=== PATIENT | male | born 1970 | race Caucasian/White ===

== ENCOUNTER 2017-09-24 20:22 | Emergency (ER) | payer MEDICAID, SELFPAY ==
[~2017-09-24] VITALS: Ht 182.9 cm; Wt 90.9 kg
[2017-09-24 20:35] VITALS: BP 142/98
== END 2017-09-24 21:22 | disposition home or self-care (01) ==
LOC: EMS 20:23
DX: K04.7 Periapical abscess without sinus (principal); K02.9 Dental caries, unspecified; F16.90 Hallucinogen use, unspecified, uncomplicated; F17.210 Nicotine dependence, cigarettes, uncomplicated
CPT/HCPCS: 99283

== ENCOUNTER 2019-05-10 05:06 | Emergency (ER) | payer SELFPAY ==
[~2019-05-10] VITALS: Ht 182.9 cm; Wt 90.9 kg
[2019-05-10] MEDS ORDERED: CloNIDine HCL 0.2 MG TABLET PO ONE (06:45)
[2019-05-10] MEDS ORDERED: KETOROLAC TROMETHAMINE 30 MG/ML VIAL IVP ONE (06:45)
[2019-05-10] MEDS ORDERED: LISINOPRIL 10 MG TABLET PO ONE (06:45)
[2019-05-10 06:55] LABS: BASOPHILS % (AUTO) 0.7 % (0.0-2.0); EOSINOPHILS % (AUTO) 1.7 % (1.0-6.0); HEMATOCRIT 39.8 % (41-53); HEMOGLOBIN 13.3 g/dL (13.5-17.5); LYMPHOCYTES # (AUTO) 1.6 K/uL (1.0-4.8); LYMPHOCYTES % (AUTO) 23.7 % (22.0-44.0); MEAN CORPUSCULAR HEMOGLOBIN 30.9 pg (26.0-34.0); MEAN CORPUSCULAR HGB CONC 33.4 G/dL (31.0-37.0); MEAN CORPUSCULAR VOLUME 92 fL (80-100); MONOCYTES # (AUTO) 0.7 K/uL (0.1-1.0); MONOCYTES % (AUTO) 10.3 % (2.0-9.0); NEUTROPHILS # (AUTO) 4.2 K/uL (1.8-7.7); NEUTROPHILS % (AUTO) 63.6 % (40.0-70.0); PLATELET COUNT (AUTO) 289 K/uL (150-450); RED BLOOD CELL COUNT(AUTO) 4.31 MIL/uL (4.50-5.90); RED CELL DISTRIBUTION WIDTH 13.3 % (11.5-14.5)
[2019-05-10 07:05] LABS: ANION GAP 7 mmol/L (8-16); CALCIUM, TOTAL 9.2 mg/dL (8.8-10.5); CARBON DIOXIDE 28 mmol/L (22-29); CHLORIDE 101 mmol/L (98-107); CREATININE 1.25 mg/dL (0.60-1.30); GLOMERULAR FILTR. RATE CALC > 60 mL/min (>60); GLUCOSE,RANDOM 102 mg/dL (70-110); POTASSIUM 4.2 mmol/L (3.5-5.1); SODIUM SERUM 136 mmol/L (136-145); UREA NITROGEN, BLOOD 21 mg/dL (7-18)
[2019-05-10 07:11] LABS: ALANINE AMINOTRANSFERASE 51 U/L (12-78); ALBUMIN 3.4 g/dL (3.4-5.0); ALKALINE PHOSPHATASE 99 U/L (46-116); ASPARTATE AMINOTRANSFERASE 44 U/L (15-37); BILIRUBIN,TOTAL 0.4 mg/dL (0.1-1.0)
[2019-05-10 08:43] LABS: APPEARANCE,URINE CLEAR (CLEAR); BILIRUBIN,URINE NEGATIVE (NEGATIVE); GLUCOSE, URINE (UA) NEGATIVE (NEGATIVE); KETONES,URINE NEGATIVE (NEGATIVE); LEUKOCYTE ESTERASE ,URINE NEGATIVE (NEGATIVE); NITRATE,URINE NEGATIVE (NEGATIVE); OCCULT BLOOD,URINE NEGATIVE (NEGATIVE); PROTEIN,URINE POS 1+ (NEGATIVE)
[2019-05-10 08:56] LABS: RBC,URINE None Seen /HPF (0-2)
[2019-05-10 08:57] LABS: BACTERIA,URINE None Seen /HPF (None Seen); SQUAMOUS EPITHELIAL CELL,UR Rare /LPF (None Seen); WBC,URINE 0-2 /HPF (0-5)
[2019-05-10 09:45] VITALS: BP 135/99
== END 2019-05-10 09:52 | disposition home or self-care (01) ==
LOC: EMS 05:11
DX: M62.838 Other muscle spasm (principal); M54.16 Radiculopathy, lumbar region; I10 Essential (primary) hypertension; F17.210 Nicotine dependence, cigarettes, uncomplicated; F19.90 Other psychoactive substance use, unspecified, uncomplicated; G43.909 Migraine, unspecified, not intractable, without status migrainosus
CPT/HCPCS: 36415; 72100; 80053; 81001; 85025; 93005; 96374; 99284; 99406; J1885

== ENCOUNTER 2019-07-23 13:27 | Emergency (ER) | payer SELFPAY ==
[~2019-07-23] VITALS: Ht 182.9 cm; Wt 90.0 kg
[2019-07-23] MEDS ORDERED: SULFAMETHOX/TRIMETH DS 800-160 MG/TABLET PO ONE (16:00)
[2019-07-23] MEDS ORDERED: CEPHALEXIN MONOHYDRATE 500 MG CAPSULE PO ONE (16:00)
[2019-07-23 16:11] VITALS: BP 128/78
== END 2019-07-23 16:39 | disposition home or self-care (01) ==
LOC: EMS 13:29
DX: L03.114 Cellulitis of left upper limb (principal); R03.0 Elevated blood-pressure reading, without diagnosis of hypertension; F15.90 Other stimulant use, unspecified, uncomplicated; F17.210 Nicotine dependence, cigarettes, uncomplicated

== ENCOUNTER 2021-08-20 19:46 | Emergency (ER) | payer MEDICAID, OTHER ==
[~2021-08-20] VITALS: Ht 182.9 cm; Wt 90.7 kg
[2021-08-20] MEDS ORDERED: ONDANSETRON HCL 4 MG TABLET PO ONE (21:15)
[2021-08-20] MEDS ORDERED: IBUPROFEN 600 MG TABLET PO ONE (21:15)
[2021-08-20 22:09] VITALS: BP 154/99
== END 2021-08-20 23:28 | disposition home or self-care (01) ==
LOC: EMS 19:52
DX: R51.9 Headache, unspecified (principal); F15.90 Other stimulant use, unspecified, uncomplicated; F17.210 Nicotine dependence, cigarettes, uncomplicated
CPT/HCPCS: 70450; 99284; Q0162

== ENCOUNTER 2022-10-22 03:32 | Emergency (ER) | payer OTHER ==
[~2022-10-22] VITALS: Ht 182.9 cm; Wt 90.9 kg
[2022-10-22 04:16] VITALS: BP 143/109
[2022-10-22 04:17] LABS: BASOPHILS % (AUTO) 0.8 % (0.0-2.0); EOSINOPHILS % (AUTO) 2.2 % (1.0-6.0); HEMATOCRIT 44.8 % (41-53); HEMOGLOBIN 15.1 g/dL (13.5-17.5); LYMPHOCYTES # (AUTO) 2.2 K/uL (1.0-4.8); LYMPHOCYTES % (AUTO) 32.8 % (22.0-44.0); MEAN CORPUSCULAR HEMOGLOBIN 30.9 pg (26.0-34.0); MEAN CORPUSCULAR HGB CONC 33.8 G/dL (31.0-37.0); MEAN CORPUSCULAR VOLUME 92 fL (80-100); MONOCYTES # (AUTO) 0.6 K/uL (0.1-1.0); MONOCYTES % (AUTO) 9.5 % (2.0-9.0); NEUTROPHILS # (AUTO) 3.7 K/uL (1.8-7.7); NEUTROPHILS % (AUTO) 54.7 % (40.0-70.0); PLATELET COUNT (AUTO) 313 K/uL (150-450); RED BLOOD CELL COUNT(AUTO) 4.89 MIL/uL (4.50-5.90); RED CELL DISTRIBUTION WIDTH 13.4 % (11.5-14.5)
[2022-10-22] MEDS ORDERED: MAG HYDROX/AL HYDROX/SIMETH 30 ML SUSP UDCUP PO ONE (04:30)
[2022-10-22] MEDS ORDERED: FAMOTIDINE 20 MG TABLET PO ONE (04:30)
[2022-10-22] MEDS ORDERED: ACETAMINOPHEN 500 MG TABLET PO ONE (04:30)
[2022-10-22 04:40] LABS: ANION GAP 3 mmol/L (8-16); CALCIUM, TOTAL 9.8 mg/dL (8.8-10.5); CARBON DIOXIDE 31 mmol/L (22-29); CHLORIDE 98 mmol/L (98-107); CREATININE 1.16 mg/dL (0.60-1.30); GLUCOSE,RANDOM 112 mg/dL (70-110); POTASSIUM 4.8 mmol/L (3.5-5.1); SODIUM SERUM 132 mmol/L (136-145); UREA NITROGEN, BLOOD 17 mg/dL (7-18)
[2022-10-22 04:42] LABS: GLOMERULAR FILTR. RATE CALC > 60 mL/min (>60)
[2022-10-22 04:51] LABS: ALANINE AMINOTRANSFERASE 81 U/L (12-78); ALBUMIN 3.6 g/dL (3.4-5.0); ALKALINE PHOSPHATASE 125 U/L (46-116); ASPARTATE AMINOTRANSFERASE 53 U/L (15-37); B-TYPE NATRIURETIC PEPTIDE 24 pg/mL (0-100); BILIRUBIN,TOTAL 0.4 mg/dL (0.1-1.0); CREATINE KINASE, TOTAL ONLY 201 U/L (39-308); LIPASE 138 U/L (73-393); TOTAL PROTEIN, SERUM 7.9 g/dL (6.4-8.2)
== END 2022-10-22 06:15 | disposition home or self-care (01) ==
LOC: EMS 03:33
DX: R07.9 Chest pain, unspecified (principal); F15.10 Other stimulant abuse, uncomplicated; F17.210 Nicotine dependence, cigarettes, uncomplicated; I10 Essential (primary) hypertension
CPT/HCPCS: 71045; 80053; 82550; 83690; 83880; 84484; 85025; 93005; 99285; 36415-L1; 36415-TC

== ENCOUNTER 2024-04-24 07:17 | Emergency (ER) | payer OTHER ==
[~2024-04-24] VITALS: Ht 182.9 cm; Wt 97.7 kg
[2024-04-24 07:20] VITALS: BP 135/82; PULSE 104; RESP 18; TEMP 97.9
[2024-04-24] MEDS: LIDOCAINE 1% 10 ML VIAL SQ ONE (09:22)
[2024-04-24] MEDS ORDERED: SULF-261 PO (10:08)
[2024-04-24] MEDS ORDERED: CEPH-558 PO (10:08)
[2024-04-24] MEDS: SULFAMETHOX/TRIMETH DS 800-160 MG/TABLET PO ONE (10:11)
[2024-04-24] MEDS: CEPHALEXIN MONOHYDRATE 500 MG CAPSULE PO ONE (10:11)
== END 2024-04-24 10:16 | disposition home or self-care (01) ==
LOC: EMS 07:21
DX: M71.012 Abscess of bursa, left shoulder (principal); I10 Essential (primary) hypertension; F17.210 Nicotine dependence, cigarettes, uncomplicated; F15.90 Other stimulant use, unspecified, uncomplicated
CPT/HCPCS: 99283; 10060; J3490

== ENCOUNTER 2024-04-25 05:04 | Inpatient (IN) | payer OTHER ==
[~2024-04-25] VITALS: Ht 182.9 cm; Wt 97.7 kg
[~2024-04-25 05:04] MED LIST: CEPH-558 PO; SULF-261 PO
[2024-04-25 06:40] LABS: BASOPHILS % (AUTO) 0.7 % (0.0-2.0); EOSINOPHILS % (AUTO) 0.4 % (1.0-6.0); HEMATOCRIT 39.3 % (41-53); LYMPHOCYTES # (AUTO) 1.9 K/uL (1.0-4.8); LYMPHOCYTES % (AUTO) 16.5 % (22.0-44.0); MEAN CORPUSCULAR HEMOGLOBIN 30.5 pg (26.0-34.0); MEAN CORPUSCULAR HGB CONC 33.1 G/dL (31.0-37.0); MEAN CORPUSCULAR VOLUME 92 fL (80-100); MONOCYTES # (AUTO) 1.1 K/uL (0.1-1.0); MONOCYTES % (AUTO) 10.2 % (2.0-9.0); NEUTROPHILS # (AUTO) 8.1 K/uL (1.8-7.7); NEUTROPHILS % (AUTO) 72.2 % (40.0-70.0); PLATELET COUNT (AUTO) 273 K/uL (150-450); RED BLOOD CELL COUNT(AUTO) 4.26 MIL/uL (4.50-5.90); RED CELL DISTRIBUTION WIDTH 14.1 % (11.5-14.5); WHITE BLOOD COUNT (AUTO) 11.2 K/uL (4.5-11.0)
[2024-04-25 06:45] LABS: ANION GAP 9 mmol/L (8-16); CALCIUM, TOTAL 9.1 mg/dL (8.8-10.5); CARBON DIOXIDE 26 mmol/L (22-29); CHLORIDE 98 mmol/L (98-107); CREATININE 1.38 mg/dL (0.60-1.30); GLOMERULAR FILTR. RATE CALC 53 mL/min (>60); GLUCOSE,RANDOM 129 mg/dL (70-110); POTASSIUM 3.9 mmol/L (3.5-5.1); SODIUM SERUM 133 mmol/L (136-145); UREA NITROGEN, BLOOD 17 mg/dL (7-18)
[2024-04-25] MEDS: SODIUM CHLORIDE 0.9% 2,950 ML IV ONE (06:51)
[2024-04-25] MEDS: CEFTAROLINE 600 MG/D5W 250 ML IV ONE (06:51)
[2024-04-25] MEDS ORDERED: SODIUM CHLORIDE 0.9% 100 ML ONE (06:53)
[2024-04-25] MEDS ORDERED: IOHEXOL 350 MG/ML 100 ML VIAL ONE (06:53)
[2024-04-25 07:01] LABS: LACTIC ACID 1.9 mmol/L (0.4-2.0)
[2024-04-25] MEDS ORDERED: OxyCODONE HCL/ACETAMINOPHEN 5-325 MG TABLET PO PRN ×2 (08:45)
[2024-04-25] MEDS ORDERED: ZOLPIDEM TARTRATE 5 MG TABLET PO PRN (08:45)
[2024-04-25] MEDS: *CLINICAL-CEFTAROLINE DOSING CLINICAL ONE (08:45)
[2024-04-25] MEDS: SODIUM CHLORIDE 0.9% 1,000 ML IV ONE (09:15)
[2024-04-25] MEDS: FAMOTIDINE 20 MG TABLET PO SCH (09:15)
[2024-04-25] MEDS: DOCUSATE SODIUM 100 MG CAPSULE PO SCH (09:15)
[2024-04-25] MEDS: AmLODIPine BESYLATE 5 MG TABLET PO SCH (09:15)
[2024-04-25 10:46] VITALS: BP 130/99; PULSE 90; RESP 18; TEMP 98.2
[2024-04-25 12:00] VITALS: BP 130/99; PULSE 90; RESP 18; TEMP 98.2
[2024-04-25] MEDS: ACETAMINOPHEN 325 MG TABLET PO PRN (14:47)
[2024-04-25 16:16] VITALS: BP 137/82; PULSE 84; RESP 18; TEMP 97.7
[2024-04-25] MEDS: CEFTAROLINE 600 MG/D5W 250 ML IV SCH (18:30)
[2024-04-25 20:19] VITALS: BP 126/66; PULSE 81; RESP 18; TEMP 98.1
[2024-04-25] MEDS: ACETAMINOPHEN 500 MG TABLET PO ONE (23:14)
[2024-04-26 05:16] LABS: APPEARANCE,URINE CLEAR (CLEAR); BILIRUBIN,URINE NEGATIVE (NEGATIVE); COLOR,URINE LIGHT YELLOW (YELLOW); GLUCOSE, URINE (UA) NEGATIVE (NEGATIVE); KETONES,URINE NEGATIVE (NEGATIVE); LEUKOCYTE ESTERASE ,URINE NEGATIVE (NEGATIVE); NITRATE,URINE NEGATIVE (NEGATIVE); OCCULT BLOOD,URINE NEGATIVE (NEGATIVE); PROTEIN,URINE NEGATIVE (NEGATIVE); SPECIFIC GRAVITIY, URINE 1.007 (1.003-1.030); UROBILINOGEN,URINE <=1.0 mg/dL (<=1.0)
[2024-04-26 05:20] VITALS: BP 134/79; PULSE 84; RESP 18; TEMP 97.9
[2024-04-26] MEDS ORDERED: SODIUM CHLORIDE 0.9% 500 ML IV ONE (06:18)
[2024-04-26 08:45] VITALS: BP 139/78; PULSE 97; RESP 18; TEMP 98.2
[2024-04-26 19:25] VITALS: BP 125/66; PULSE 98; RESP 18; TEMP 98
[2024-04-27 04:58] VITALS: BP 133/77; PULSE 85; RESP 20; TEMP 98.2
[2024-04-27 08:13] VITALS: BP 138/91; PULSE 91; RESP 20; TEMP 98.8
[2024-04-27] MEDS ORDERED: SULF-261 PO (08:22)
[2024-04-27 08:29] LABS: BASOPHILS % (AUTO) 0.6 % (0.0-2.0); EOSINOPHILS % (AUTO) 1.4 % (1.0-6.0); HEMATOCRIT 41.6 % (41-53); HEMOGLOBIN 14.1 g/dL (13.5-17.5); LYMPHOCYTES # (AUTO) 1.7 K/uL (1.0-4.8); LYMPHOCYTES % (AUTO) 18.2 % (22.0-44.0); MEAN CORPUSCULAR HGB CONC 33.9 G/dL (31.0-37.0); MEAN CORPUSCULAR VOLUME 91 fL (80-100); MONOCYTES # (AUTO) 0.7 K/uL (0.1-1.0); MONOCYTES % (AUTO) 7.3 % (2.0-9.0); NEUTROPHILS # (AUTO) 6.7 K/uL (1.8-7.7); NEUTROPHILS % (AUTO) 72.5 % (40.0-70.0); PLATELET COUNT (AUTO) 358 K/uL (150-450); RED BLOOD CELL COUNT(AUTO) 4.55 MIL/uL (4.50-5.90); RED CELL DISTRIBUTION WIDTH 13.6 % (11.5-14.5); WHITE BLOOD COUNT (AUTO) 9.2 K/uL (4.5-11.0)
[2024-04-27 08:31] LABS: ANION GAP 8 mmol/L (8-16); CALCIUM, TOTAL 9.8 mg/dL (8.8-10.5); CARBON DIOXIDE 28 mmol/L (22-29); CHLORIDE 100 mmol/L (98-107); CREATININE 1.14 mg/dL (0.60-1.30); GLOMERULAR FILTR. RATE CALC > 60 mL/min (>60); GLUCOSE,RANDOM 113 mg/dL (70-110); POTASSIUM 4.6 mmol/L (3.5-5.1); SODIUM SERUM 136 mmol/L (136-145); UREA NITROGEN, BLOOD 10 mg/dL (7-18)
[2024-04-27] MEDS ORDERED: ETHYL ALCOHOL 62% ANTISEPTIC NASAL SANITIZER 0.6 ML AMPUL NASAL ONE (09:30)
[2024-04-27] MEDS ORDERED: RINGERS SOLUTION,LACTATED 1,000 ML IV ONE ×2 (09:32→12:00)
== END 2024-04-27 12:40 | disposition left against medical advice (07) | DRG 383 ==
LOC: EMS 05:05 → 6S 10:07
PROVIDERS: ADMIT Internal Medicine; ATTEND Internal Medicine
DX: L03.113 Cellulitis of right upper limb (principal); R65.10 Systemic inflammatory response syndrome (SIRS) of non-infectious origin without acute organ dysfunction; L02.413 Cutaneous abscess of right upper limb; F15.90 Other stimulant use, unspecified, uncomplicated; I10 Essential (primary) hypertension; Z53.29 Procedure and treatment not carried out because of patient's decision for other reasons; G43.909 Migraine, unspecified, not intractable, without status migrainosus; Z59.00 Homelessness unspecified; D64.9 Anemia, unspecified
CPT/HCPCS: 71045; 73201; 80048; 81003; 83605; 85025; 85610; 87040; 87077; 87205; 93005; 99285; J0712; J7030; J7040; J7050; J7120; Q9967; 36415-L1; 36415-TC

== ENCOUNTER 2024-12-29 08:14 | Emergency (ER) | payer OTHER ==
[~2024-12-29] VITALS: Ht 182.9 cm; Wt 97.7 kg
[~2024-12-29 08:14] MED LIST changes: -CEPH-558 PO
[2024-12-29 08:17] VITALS: TEMP 97.6
[2024-12-29 08:33] LABS: COVID AG,FIA SOURCE NASAL SWAB
[2024-12-29 09:03] LABS: INFLUENZA TYPE A NEGATIVE FOR TYPE A (NEGATIVE); INFLUENZA TYPE B NEGATIVE FOR TYPE B (NEGATIVE); SARS-COV2 (COVID) ANTIGEN,FIA Negative (Negative)
[2024-12-29 10:49] VITALS: PULSE 86; RESP 18; O2SAT 98
[2024-12-29] MEDS: IPRATROPIUM BROMIDE 0.5 MG/2.5 ML NEB SOLUTION NEB ONE (10:49)
[2024-12-29] MEDS: ALBUTEROL SULFATE 2.5 MG/0.5 ML NEB SOLUTION NEB ONE (10:49)
[2024-12-29 11:04] VITALS: PULSE 88; RESP 18; O2SAT 99
[2024-12-29] MEDS ORDERED: AZIT250T9 PO (12:32)
[2024-12-29 12:45] VITALS: PULSE 88; RESP 18; O2SAT 98
[2024-12-29] MEDS: ALBUTEROL SULFATE HFA 90 MCG/PUFF 8 GM INHALER IH ONE (12:51)
[2024-12-29 13:00] VITALS: BP 128/79; PULSE 81; RESP 18; O2SAT 98
== END 2024-12-29 13:19 | disposition home or self-care (01) ==
LOC: EMS 08:16
DX: J98.01 Acute bronchospasm (principal); R05.9 Cough, unspecified; R07.9 Chest pain, unspecified; I10 Essential (primary) hypertension; Z87.891 Personal history of nicotine dependence; Z20.822 Contact with and (suspected) exposure to COVID-19
CPT/HCPCS: 99285; 71045; 87426; 87804; 94640; J3535; J7613